=== PATIENT | female | born 1970 | race Two or more races ===

== ENCOUNTER 2017-01-19 13:41 | Emergency (ER) | payer MEDICAID ==
[~2017-01-19] VITALS: Ht 152.4 cm; Wt 59.9 kg
[2017-01-19 14:10] VITALS: BP 126/81
== END 2017-01-19 16:34 | disposition home or self-care (01) ==
LOC: ER 13:41
DX: S16.1XXA Strain of muscle, fascia and tendon at neck level, initial encounter (principal); V43.52XA Car driver injured in collision with other type car in traffic accident, initial encounter; Y93.89 Activity, other specified; Y99.8 Other external cause status; Y92.89 Other specified places as the place of occurrence of the external cause